=== PATIENT | male | born 1970 | race Caucasian/White ===

== ENCOUNTER 2016-11-24 19:57 | Emergency (ER) | payer OTHER ==
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
[2016-11-24] MEDS: HYDROCODONE/APAP 5/325MG TABLET PO ONE (21:55)
--- NOTE | 2016-11-26 13:22 | RADIOLOGY REPORT ---
EXAM: RIGHT RIB RADIOGRAPHS WITH PA CHEST HISTORY: FALL. RIGHT ANTERIOR RIB PAIN. TECHNIQUE: Frontal view of the chest and multiple views of the right ribs were obtained. Comparison: None. FINDINGS: Frontal view of the chest demonstrates no cardiomegaly. The lungs and pleural spaces are clear. There appears to be a subtle lucency through the right anterior eighth and seventh ribs suspicious for nondisplaced fractures. Please correlate clinically. IMPRESSION: SUSPECT NONDISPLACED FRACTURES INVOLVING THE ANTERIOR RIGHT EIGHTH AND SEVENTH RIBS. JOB NUMBER: [id number] [facility]
== END 2016-11-24 21:55 | disposition home or self-care (01) ==
LOC: ER 19:57
DX: S22.41XA Multiple fractures of ribs, right side, initial encounter for closed fracture (principal); V86.59XA Driver of other special all-terrain or other off-road motor vehicle injured in nontraffic accident, initial encounter
CPT/HCPCS: 99283

== ENCOUNTER 2017-02-10 12:24 | Emergency (ER) | payer OTHER ==
[2017-02-10] MEDS ORDERED: KETOROLAC 30 MG/ML VIAL IM ONE (12:42)
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
[2017-02-10 13:11] LABS: BASO % 0.4 % (0-6); EOS % 1.6 % (0-6); GRAN % 57.1 % (47-80); HEMATOCRIT 43.3 % (42.0-52.0); HEMOGLOBIN 15.1 gm/dl (14.0-18.0); LYMPH % 29.4 % (16-45); MEAN CELL VOLUME 83.6 fl (81-97); MEAN CORPUSCULAR HEMOGLOBIN 29.2 pg (27-33); MEAN CORPUSCULAR HGB CONC 34.9 g/dl (32-36); MEAN PLATELET VOLUME 8.9 fl (7.4-10.4); MONO % 11.5 % (0-9); PLATELET COUNT 180 K/uL (130-400); RED BLOOD COUNT 5.18 M/uL (4.40-5.70); RED CELL DISTRIBUTION WIDTH 13.1 % (11.5-14.5); WHITE BLOOD COUNT W/O DIFF 4.9 K/uL (4.2-12.2)
[2017-02-10 13:12] LABS: URINE APPEARANCE CLEAR; URINE BILIRUBIN NEGATIVE (NEGATIVE); URINE BLOOD MODERATE (NEGATIVE); URINE COLOR YELLOW; URINE GLUCOSE (UA) NEGATIVE (NEGATIVE); URINE KETONE TRACE (NEGATIVE); URINE LEUKOCYTE ESTERASE TRACE (NEGATIVE); URINE NITRITE POSITIVE (NEGATIVE); URINE PROTEIN NEGATIVE (NEGATIVE); URINE UROBILINOGEN 0.2 E.U./dL (0.20 - 1.00)
[2017-02-10 13:26] LABS: URINE BACTERIA 1+; URINE MUCUS LIGHT
[2017-02-10 13:36] LABS: BLOOD UREA NITROGEN 18 mg/dL (6-20); CREATININE 0.8 mg/dL (0.7-1.2); EST GLOMERULAR FILTRATION RATE > 60 mL/min; GLUCOSE,RANDOM 102 mg/dL (74-109)
--- NOTE | 2017-02-11 18:47 | RADIOLOGY REPORT ---
EXAM: RIBS, LEFT W/PA CHEST HISTORY: INJURY. TECHNIQUE: Single PA view of the chest. Multiple views of the left rib cage were performed. FINDINGS: Heart size is normal. Lungs bautista are clear. No pneumothorax. No rib fracture deformity. IMPRESSION: NEGATIVE PA CHEST AND LEFT RIBS. JOB NUMBER: [id number] [facility]
--- NOTE | 2017-02-11 18:49 | RADIOLOGY REPORT ---
EXAM: PELVIS, AP HISTORY: INJURY. TECHNIQUE: A single AP view of the pelvis was performed. FINDINGS: No evidence of fracture or dislocation. No lytic or blastic lesion. IMPRESSION: NEGATIVE AP PELVIS EXAMINATION. [facility]: [id number] [facility]
== END 2017-02-10 14:08 | disposition home or self-care (01) ==
LOC: ER 12:24
DX: S20.212A Contusion of left front wall of thorax, initial encounter (principal); M25.552 Pain in left hip; V86.56XA Driver of dirt bike or motor/cross bike injured in nontraffic accident, initial encounter
CPT/HCPCS: 72170; 80048; 81001; 85025; 96372; 99283; 99284; J1885